=== PATIENT | female | born 1995 | race Two or more races ===

== ENCOUNTER 2020-01-29 10:54 | Emergency (ER) | payer OTHER ==
[~2020-01-29] VITALS: Ht 160 cm; Wt 79.4 kg
[2020-01-29] MEDS ORDERED: ZITHROMAX500 MG PO (15:04)
== END 2020-01-29 15:13 | disposition home or self-care (01) ==
LOC: ER 10:54
DX: B34.9 Viral infection, unspecified (principal); Z20.828 Contact with and (suspected) exposure to other viral communicable diseases

== ENCOUNTER 2021-07-10 19:14 | Emergency (ER) | payer OTHER ==
[~2021-07-10] VITALS: Ht 160 cm; Wt 77.1 kg
[~2021-07-10 19:14] MED LIST: ZITHROMAX500 MG PO
[2021-07-10] MEDS ORDERED: PRENATAL + DHA1 EAC1 PO (19:24)
[2021-07-11] MEDS ORDERED: ZOFRAN4 MG PO (00:38)
[2021-07-11] MEDS ORDERED: PEPCID AC20 MG PO (00:38)
== END 2021-07-11 00:58 | disposition home or self-care (01) ==
LOC: ER 19:14
DX: O26.891 Other specified pregnancy related conditions, first trimester (principal); Z3A.01 Less than 8 weeks gestation of pregnancy; R11.2 Nausea with vomiting, unspecified

== ENCOUNTER 2021-07-11 14:41 | Emergency (ER) | payer OTHER ==
[~2021-07-11] VITALS: Ht 152.4 cm; Wt 77.1 kg
[~2021-07-11 14:41] MED LIST changes: +PEPCID AC20 MG PO; +PRENATAL + DHA1 EAC1 PO; +ZOFRAN4 MG PO
== END 2021-07-11 18:08 | disposition home or self-care (01) ==
LOC: ER 14:41
DX: O03.9 Complete or unspecified spontaneous abortion without complication (principal); Z88.6 Allergy status to analgesic agent

== ENCOUNTER 2025-05-10 20:47 | Emergency (ER) | payer OTHER ==
[~2025-05-10] VITALS: Ht 154.9 cm; Wt 77.6 kg
[2025-05-10 21:30] VITALS: BP 109/76; O2SAT 100
[2025-05-10] MEDS ORDERED: ORPHENADRINE CITRATE 30 MG/ML AMPUL IM ONE (23:45)
[2025-05-11] MEDS ORDERED: DEXAMETHASONE SODIUM PHOSPHATE 4 MG/ML VIAL IM STA (02:57)
[2025-05-11] MEDS ORDERED: TRAMADOL HCL50 MG PO (03:03)
== END 2025-05-11 04:56 | disposition home or self-care (01) ==
LOC: ER 20:48
DX: N83.02 Follicular cyst of left ovary (principal); N83.01 Follicular cyst of right ovary; Z88.6 Allergy status to analgesic agent